=== PATIENT | female | born 1965 | race Caucasian/White ===

== ENCOUNTER → 2021-05-17 | Outpatient (CLI) | payer OTHER ==
[2021-05-17 12:12] LABS: D-DIMER 0.33 mg/L FEU (0.15-0.50)
== END ==
LOC: LAB 11:10
PROVIDERS: Family Medicine
DX: R07.9 Chest pain, unspecified (principal)

== ENCOUNTER → 2023-09-03 | Outpatient (CLI) | payer MEDICARE | LOC: RAD 09:25 | DX: R22.1 Localized swelling, mass and lump, neck (principal) ==

== ENCOUNTER → 2023-10-10 | Outpatient (CLI) | payer MEDICARE | LOC: RAD 10:38 | DX: M47.26 Other spondylosis with radiculopathy, lumbar region (principal); M43.27 Fusion of spine, lumbosacral region; Z87.828 Personal history of other (healed) physical injury and trauma ==